=== PATIENT | male | born 1970 | race African-American/Black ===

== ENCOUNTER 2023-01-04 15:01 | Emergency (ER) | payer BC, OTHER ==
[~2023-01-04] VITALS: Ht 167.6 cm; Wt 72.6 kg
[~2023-01-04 15:01] MED LIST: ALBU8.5H4 IH
--- NOTE | 2023-01-04 15:34 | NUR ---
BIBA for CP. Patient states pain is 5/10 localized chest pain, has not occurred before. Patient A/O x 4.
--- NOTE | 2023-01-04 15:53 | NUR ---
BLOOD SAMPLE OBTAINED
[2023-01-04 16:14] LABS: BASOPHILS # (AUTO) 0.1 K/uL (0.0-0.2); BASOPHILS % (AUTO) 1.1 % (0.0-2.0); EOSINOPHILS % (AUTO) 4.7 % (0.0-6.0); HEMATOCRIT 45 % (39-51); HEMOGLOBIN 14.7 g/dL (13.5-17.5); LYMPHOCYTES # (AUTO) 2.1 K/uL (0.8-4.8); LYMPHOCYTES % (AUTO) 43.1 % (20.0-44.0); MEAN CORPUSCULAR HGB CONC 33 g/dl (31.0-36.0); MEAN CORPUSCULAR VOLUME 92 fL (80-96); MONOCYTES # (AUTO) 0.4 K/uL (0.1-1.30); MONOCYTES % (AUTO) 7.2 % (2.0-12.0); NEUTROPHILS # (AUTO) 2.1 K/uL (1.8-8.9); NEUTROPHILS % (AUTO) 43.9 % (43.0-81.0); PLATELET COUNT (AUTO) 421 K/uL (150-450); RED BLOOD CELL COUNT(AUTO) 4.89 MIL/uL (4.5-6.0); WHITE BLOOD COUNT (AUTO) 4.9 K/uL (4.3-11.0)
[2023-01-04 16:28] LABS: CALCIUM, SERUM 8.6 mg/dL (8.5-10.1); CARBON DIOXIDE 27 mmol/L (21-32); CHLORIDE 103 mmol/L (98-107); GLUCOSE 108 mg/dL (74-106); POTASSIUM 4.2 mmol/L (3.5-5.1); SODIUM SERUM 135 mmol/L (136-145); UREA NITROGEN, BLOOD 19 mg/dL (7-18)
--- NOTE | 2023-01-04 20:04 | NUR ---
COVID ANTIGEN SWAB COLLECTED AND SENT TO LAB
--- NOTE | 2023-01-04 20:08 | NUR ---
CALLED [facility] REGARDING IF PT WILL BE TRANSFERRED BACK TO [facility] HE WAS TRANSFERRED FROM THERE. WAS TOLD TO ASK RN SUP IN 30 MINUTES
--- NOTE | 2023-01-04 20:32 | NUR ---
FAXED CINICALS TO [facility]
--- NOTE | 2023-01-04 21:01 | NUR ---
Patient discharged to home in stable condition. Written and verbal after care instructions given. Patient verbalizes understanding of instruction. IV removed. Catheter intact and site benign. Pressure and 4x4 applied to site. No bleeding noted. PT ambulatory with a steady gait
[2023-01-04 21:12] VITALS: BP 118/71
== END 2023-01-04 21:14 | disposition home or self-care (01) ==
LOC: ER 15:01
DX: R07.89 Other chest pain (principal); Z20.822 Contact with and (suspected) exposure to COVID-19; J45.909 Unspecified asthma, uncomplicated; I10 Essential (primary) hypertension; Z88.6 Allergy status to analgesic agent; Z88.0 Allergy status to penicillin; F17.200 Nicotine dependence, unspecified, uncomplicated
CPT/HCPCS: 99285; 71045; 87426; 93005 ×2; 85025; 80048; 85378; 36415; 84484 ×2; C9803

== ENCOUNTER 2023-02-18 06:03 | Emergency (ER) | payer OTHER ==
[~2023-02-18] VITALS: Ht 167.6 cm; Wt 76.2 kg
[2023-02-18 06:20] VITALS: BP 138/83
--- NOTE | 2023-02-18 06:21 | NUR ---
BIBSELF C/O DEPRESSED. +HI. REQUESTING VOL. PSYCH ADMISSION. PLACED IN BED. BELONGINGS PLACED IN LOCKER. PT PLACED IN GOWN. MD AT BEDSIDE FOR EVAL. AWITING ORDERS.
--- NOTE | 2023-02-18 06:22 | NUR ---
SANDIPID SWABBED, SENT TO LAB.
[2023-02-18 07:19] LABS: BASOPHILS % (AUTO) 0.5 % (0.0-2.0); EOSINOPHILS % (AUTO) 3.6 % (0.0-6.0); HEMATOCRIT 44 % (39-51); HEMOGLOBIN 14.2 g/dL (13.5-17.5); LYMPHOCYTES # (AUTO) 1.8 K/uL (0.8-4.8); LYMPHOCYTES % (AUTO) 35.8 % (20.0-44.0); MEAN CORPUSCULAR HGB CONC 33 g/dl (31.0-36.0); MEAN CORPUSCULAR VOLUME 92 fL (80-96); MONOCYTES # (AUTO) 0.5 K/uL (0.1-1.30); MONOCYTES % (AUTO) 8.8 % (2.0-12.0); NEUTROPHILS # (AUTO) 2.6 K/uL (1.8-8.9); NEUTROPHILS % (AUTO) 51.3 % (43.0-81.0); PLATELET COUNT (AUTO) 416 K/uL (150-450); RED BLOOD CELL COUNT(AUTO) 4.75 MIL/uL (4.5-6.0); WHITE BLOOD COUNT (AUTO) 5.1 K/uL (4.3-11.0)
[2023-02-18 07:44] LABS: ALANINE AMINOTRANSFERASE 28 U/L (12-78); ALBUMIN 3.8 g/dL (3.4-5.0); ALKALINE PHOSPHATASE 101 U/L (46-116); ASPARTATE AMINOTRANSFERASE 11 U/L (15-37); BILIRUBIN,DIRECT 0.1 mg/dL (0.0-0.2); BILIRUBIN,TOTAL 0.1 mg/dL (0.2-1.0); BILIRUBIN,URINE NEGATIVE (NEGATIVE); CALCIUM, SERUM 9.2 mg/dL (8.5-10.1); CARBON DIOXIDE 32 mmol/L (21-32); CHLORIDE 105 mmol/L (98-107); COLOR,URINE YELLOW (YELLOW); GLUCOSE 86 mg/dL (74-106); LEUKOCYTE ESTERASE ,URINE NEGATIVE (NEGATIVE); NITRITE, URINE NEGATIVE (NEGATIVE); POTASSIUM 4.1 mmol/L (3.5-5.1); PROTEIN,URINE NEGATIVE (NEGATIVE); SODIUM SERUM 141 mmol/L (136-145); TOTAL PROTEIN, SERUM 6.9 g/dL (6.4-8.2); UGLUCOSE NEGATIVE (NEGATIVE); UREA NITROGEN, BLOOD 11 mg/dL (7-18); UROBILINOGEN,URINE 0.2 EU/dL (0.2)
[2023-02-18 07:47] LABS: ACETAMINOPHEN < 10 ug/ml (10-30); ALCOHOL, BLOOD < 10 mg/dL (0-0)
--- NOTE | 2023-02-18 08:55 | NUR ---
FAXED CLINICALS TO [facility].
--- NOTE | 2023-02-18 09:50 | NUR ---
PT SEEN BY EMD. AWAITING FOR ORDERS PUT ON MONITOR. NCP DONE
--- NOTE | 2023-02-18 10:00 | NUR ---
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
--- NOTE | 2023-02-18 10:03 | NUR ---
PT ACCEPTED TO [facility] UNDER DR. MORE. PLEASE CALL [phone] FOR REPORT. [facility] WILL ARRANGE TRANSPORT.
--- NOTE | 2023-02-18 10:52 | NUR ---
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 stable condition.
== END 2023-02-18 10:53 ==
LOC: ER 06:07
DX: F99 Mental disorder, not otherwise specified (principal); F32.A Depression, unspecified; F15.10 Other stimulant abuse, uncomplicated; F12.10 Cannabis abuse, uncomplicated; J45.909 Unspecified asthma, uncomplicated; F17.200 Nicotine dependence, unspecified, uncomplicated; Z20.822 Contact with and (suspected) exposure to COVID-19; Z88.0 Allergy status to penicillin; Z88.8 Allergy status to other drugs, medicaments and biological substances; Z79.51 Long term (current) use of inhaled steroids
CPT/HCPCS: 99285; 85025; 80048; 80076; 81003; 36415; 87426; 80143; 80320; 80307; C9803; G0480

== ENCOUNTER 2023-06-16 22:56 | Emergency (ER) | payer OTHER ==
[~2023-06-16] VITALS: Ht 167.6 cm; Wt 68.0 kg
--- NOTE | 2023-06-16 23:57 | NUR ---
BIBSELF C/O L FOOT PAIN X1 MONTH. HX GOUT. DENIES TRAUMA. PATIENT AOX4. ABLE TO MAKE NEEDS KNOWN. PLACED COMFORTABLY IN BED. VITALS CHECKED.
[2023-06-16 23:58] VITALS: BP 135/90; TEMP 98.2; O2SAT 97
--- NOTE | 2023-06-16 23:58 | NUR ---
EVALUATED BY DR OG CABRERA
[2023-06-17] MEDS ORDERED: HYDROCODONE/APAP 5/325MG TABLET ONE (00:04)
[2023-06-17] MEDS ORDERED: predniSONE 20 MG TABLET ONE (00:05)
[2023-06-17] MEDS: HYDROCODONE/APAP 5/325MG TABLET PO ONE (00:07)
[2023-06-17] MEDS: predniSONE 50 MG TABLET PO ONE (00:07)
[2023-06-17] MEDS ORDERED: DICY10CA37 PO (00:08)
[2023-06-17] MEDS ORDERED: SULF1TAB48 PO (00:08)
[2023-06-17] MEDS ORDERED: PRED50TA PO (00:08)
--- NOTE | 2023-06-17 00:13 | NUR ---
Patient discharged to home in stable condition. RX Written and verbal after care instructions given. Patient verbalizes understanding of instruction.
== END 2023-06-17 00:14 | disposition home or self-care (01) ==
LOC: ER 22:57
DX: G89.29 Other chronic pain (principal); M54.50 Low back pain, unspecified; F17.210 Nicotine dependence, cigarettes, uncomplicated; Z79.899 Other long term (current) drug therapy; Z88.0 Allergy status to penicillin; Z88.1 Allergy status to other antibiotic agents
CPT/HCPCS: 99283; 99406; J7512

== ENCOUNTER 2023-07-06 20:48 | Emergency (ER) | payer OTHER ==
[~2023-07-06] VITALS: Ht 167.6 cm; Wt 72.6 kg
[~2023-07-06 20:48] MED LIST changes: +DICY10CA37 PO; +PRED50TA PO; +SULF1TAB48 PO
[2023-07-06 21:35] VITALS: BP 125/85; TEMP 98.1; O2SAT 99
== END 2023-07-06 22:22 | disposition home or self-care (01) ==
LOC: ER 20:52
DX: Z00.00 Encounter for general adult medical examination without abnormal findings (principal); Z79.899 Other long term (current) drug therapy; Z88.0 Allergy status to penicillin; Z91.013 Allergy to seafood; Z88.1 Allergy status to other antibiotic agents

== ENCOUNTER 2023-07-25 03:50 | Emergency (ER) | payer OTHER ==
[~2023-07-25] VITALS: Ht 167.6 cm; Wt 72.6 kg
[2023-07-25] MEDS ORDERED: COLC0.6T67 PO (04:33)
[2023-07-25 04:47] VITALS: BP 130/75; TEMP 98.4; O2SAT 100
== END 2023-07-25 04:48 | disposition home or self-care (01) ==
LOC: ER 03:54
DX: M10.9 Gout, unspecified (principal); M54.50 Low back pain, unspecified; G89.29 Other chronic pain; F17.210 Nicotine dependence, cigarettes, uncomplicated; Z79.899 Other long term (current) drug therapy; Z88.0 Allergy status to penicillin; Z91.018 Allergy to other foods; Z91.013 Allergy to seafood

== ENCOUNTER 2023-08-02 07:43 | Emergency (ER) | payer OTHER ==
[~2023-08-02] VITALS: Ht 170.2 cm; Wt 68.9 kg
[~2023-08-02 07:43] MED LIST changes: +COLC0.6T67 PO
[2023-08-02 08:07] VITALS: BP 142/78; TEMP 98.7; O2SAT 100
[2023-08-02] MEDS ORDERED: ACETAMINOPHEN ES 500 MG TABLET PO ONE (10:00)
[2023-08-02] MEDS ORDERED: COLCHICINE 0.6 MG TABLET PO ONE (10:00)
[2023-08-02] MEDS ORDERED: COLCHICINE 0.6 MG TABLET ONE (10:10)
== END 2023-08-02 10:25 | disposition home or self-care (01) ==
LOC: ER 07:48
DX: M10.9 Gout, unspecified (principal); F17.210 Nicotine dependence, cigarettes, uncomplicated; Z20.822 Contact with and (suspected) exposure to COVID-19; Z79.899 Other long term (current) drug therapy; Z59.00 Homelessness unspecified; Z88.0 Allergy status to penicillin; Z88.1 Allergy status to other antibiotic agents; Z91.013 Allergy to seafood; Z91.018 Allergy to other foods
CPT/HCPCS: 99283; 87426; 99406; C9803

== ENCOUNTER 2023-12-02 03:26 | Emergency (ER) | payer OTHER ==
[~2023-12-02] VITALS: Ht 170.2 cm; Wt 68.9 kg
[2023-12-02 03:54] VITALS: BP 147/69; TEMP 98.5; O2SAT 98
[2023-12-02] MEDS ORDERED: HYDROCODONE/APAP 5/325MG TABLET ONE (03:57)
[2023-12-02] MEDS ORDERED: COLCHICINE 0.6 MG TABLET ONE (03:57)
[2023-12-02] MEDS ORDERED: CYCL5TAB PO (03:58)
[2023-12-02] MEDS ORDERED: METH4TAB3 PO (03:58)
[2023-12-02] MEDS ORDERED: HYDROCODONE/APAP 5/325MG TABLET PO ONE (04:00)
[2023-12-02] MEDS ORDERED: KETOROLAC TROMETHAMINE INJ 60 MG/2 ML VIAL IM ONE (04:00)
[2023-12-02] MEDS ORDERED: COLCHICINE 0.6 MG TABLET PO ONE (04:00)
== END 2023-12-02 04:16 | disposition home or self-care (01) ==
LOC: ER 03:30
DX: M10.9 Gout, unspecified (principal); G89.29 Other chronic pain; M54.50 Low back pain, unspecified; F17.200 Nicotine dependence, unspecified, uncomplicated; Z88.0 Allergy status to penicillin; Z91.013 Allergy to seafood; Z88.6 Allergy status to analgesic agent; Z91.018 Allergy to other foods; Z59.00 Homelessness unspecified

== ENCOUNTER 2024-03-18 06:42 | Emergency (ER) | payer OTHER ==
[~2024-03-18] VITALS: Ht 170.2 cm; Wt 68.0 kg
[~2024-03-18 06:42] MED LIST changes: +CYCL5TAB PO; +METH4TAB3 PO
[2024-03-18 07:53] VITALS: BP 131/69; TEMP 98.6
[2024-03-18] MEDS ORDERED: COLC0.6T67 PO (08:07)
[2024-03-18] MEDS ORDERED: ACETAMINOPHEN ES 500 MG TABLET ONE (08:29)
[2024-03-18] MEDS ORDERED: COLCHICINE 0.6 MG TABLET ONE (08:30)
[2024-03-18] MEDS: COLCHICINE 0.6 MG TABLET PO ONE (08:32)
[2024-03-18] MEDS: ACETAMINOPHEN ES 500 MG TABLET PO ONE (08:32)
[2024-03-18 08:42] VITALS: O2SAT 99
== END 2024-03-18 08:43 | disposition home or self-care (01) ==
LOC: ER 06:46
DX: M10.9 Gout, unspecified (principal); M54.9 Dorsalgia, unspecified; F17.210 Nicotine dependence, cigarettes, uncomplicated; G89.29 Other chronic pain; Z79.899 Other long term (current) drug therapy; Z88.0 Allergy status to penicillin; Z88.1 Allergy status to other antibiotic agents

== ENCOUNTER 2024-12-11 20:04 | Emergency (ER) | payer OTHER ==
[~2024-12-11] VITALS: Ht 175.3 cm; Wt 72.6 kg
[2024-12-11 20:10] VITALS: BP 150/84; TEMP 99; O2SAT 100
[2024-12-11] MEDS ORDERED: ACETAMINOPHEN ES 500 MG TABLET ONE (22:03)
[2024-12-11] MEDS ORDERED: COLCHICINE 0.6 MG TABLET ONE (22:04)
[2024-12-11] MEDS: COLCHICINE 0.6 MG TABLET PO ONE (22:08)
[2024-12-11] MEDS: ACETAMINOPHEN ES 500 MG TABLET PO ONE (22:09)
== END 2024-12-11 22:08 | disposition home or self-care (01) ==
LOC: ER 20:05
DX: M10.071 Idiopathic gout, right ankle and foot (principal); M10.072 Idiopathic gout, left ankle and foot; F17.200 Nicotine dependence, unspecified, uncomplicated; I10 Essential (primary) hypertension; Z59.00 Homelessness unspecified; Z79.52 Long term (current) use of systemic steroids; Z79.899 Other long term (current) drug therapy; Z88.0 Allergy status to penicillin; Z88.6 Allergy status to analgesic agent; Z87.39 Personal history of other diseases of the musculoskeletal system and connective tissue; Z91.018 Allergy to other foods

== ENCOUNTER 2025-04-09 18:05 | Emergency (ER) | payer OTHER ==
[~2025-04-09] VITALS: Ht 167.6 cm; Wt 72.6 kg
[2025-04-09 18:41] VITALS: TEMP 98; O2SAT 95
[2025-04-09] MEDS ORDERED: ARIP15TA3 PO (18:59)
[2025-04-09] MEDS ORDERED: ACETAMINOPHEN ES 500 MG TABLET ONE (19:32)
[2025-04-09] MEDS ORDERED: ARIPIPRAZOLE 2 MG TABLET ONE (19:32)
[2025-04-09] MEDS ORDERED: AMLODIPINE BESYLATE 5 MG TABLET ONE (19:33)
[2025-04-09] MEDS: ARIPIPRAZOLE 5 MG TABLET PO ONE (19:37)
[2025-04-09 19:38] VITALS: BP 163/108
[2025-04-09] MEDS: AMLODIPINE BESYLATE 5 MG TABLET PO ONE (19:38)
[2025-04-09] MEDS: ACETAMINOPHEN ES 500 MG TABLET PO ONE (19:39)
== END 2025-04-09 20:08 | disposition home or self-care (01) ==
LOC: ER 18:05
DX: F32.A Depression, unspecified (principal); L84 Corns and callosities; I10 Essential (primary) hypertension; F17.200 Nicotine dependence, unspecified, uncomplicated; M10.9 Gout, unspecified; Z79.52 Long term (current) use of systemic steroids; Z79.899 Other long term (current) drug therapy; Z88.0 Allergy status to penicillin; Z88.6 Allergy status to analgesic agent; Z60.2 Problems related to living alone